=== PATIENT | female | born 1950 | race African-American/Black ===

== ENCOUNTER 2017-05-20 07:50 | Day surgery (SDC) | payer OTHER ==
[2017-05-15 16:09] VITALS: BMI 21.9
[2017-05-20] MEDS ORDERED: PROPOFOL 20 ML ONE ×2 (07:53)
[2017-05-20] MEDS ORDERED: LIDOCAINE HCL/PF 2% SDV 5ML VIAL ONE (08:18)
[2017-05-20 09:39] VITALS: PULSE 66
[2017-05-20 09:47] VITALS: BP 105/64; TEMP 97.8
== END 2017-05-20 09:48 | disposition home or self-care (01) ==
LOC: FASU-ENDO 07:50
PROVIDERS: ATTEND Internal Medicine Gastroenterology
PROC: 0DJD8ZZ Inspection of Lower Intestinal Tract, Via Natural or Artificial Opening Endoscopic (ICD-10-PCS; principal; 2017-05-20 08:45)
DX: Z86.010 Personal history of colon polyps (principal)

== ENCOUNTER 2023-03-25 08:20 | Day surgery (SDC) | payer OTHER ==
[2023-03-21 11:12] VITALS: BMI 21.5
[2023-03-25 10:24] VITALS: PULSE 71; RESP 18; TEMP 96.8
[2023-03-25 10:42] VITALS: BP 116/60
== END 2023-03-25 10:42 | disposition home or self-care (01) ==
LOC: FASU-ENDO 08:20
PROVIDERS: ATTEND Internal Medicine Gastroenterology
PROC: 0DJD8ZZ Inspection of Lower Intestinal Tract, Via Natural or Artificial Opening Endoscopic (ICD-10-PCS; principal; 2023-03-25 10:03)
DX: Z12.11 Encounter for screening for malignant neoplasm of colon (principal); Z86.010 Personal history of colon polyps